=== PATIENT | female | born 2000 | race Caucasian/White ===

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

== ENCOUNTER 2021-02-22 21:11 | Emergency (ER) | payer OTHER ==
[~2021-02-22] VITALS: Ht 167.7 cm; Wt 59.1 kg
[2021-02-22] MEDS ORDERED: ONDANSETRON 4 MG (ZOFRAN) ORAL DISSOLVE TAB SL STA (21:49)
--- NOTE | 2021-02-22 21:59 | ED GI ---
General Stated Complaint: HEADACH, NAUSEA, VOMITING, MUSCLE ACHE Source of Information: Patient Exam Limitations: No Limitations History of Present Illness Date Seen by Provider: Feb 22, 2021 Time Seen by Provider: 21:40 Initial Comments 20-year-old female with no significant past medical history coming in due to 1 day of nonbloody and nonbilious vomiting. Started this morning upon waking up. Every time she vomits she feels better for a little bit of time and then it comes back. She had minimal to eat today but has had some fluids. Has not had any fever, cough, shortness of breath, abdominal pain, dysuria, diarrhea, rash, or any other concerns. He does live with a couple different people but nobody else has been sick. She does not believe she is eating anything unusual or raw. She is otherwise denying any other acute complaints. She did have Covid back in November, but is not vaccinated. She is on the control pill, and her LMP was 2 days ago. Allergies and Home Medications Allergies Coded Allergies: Penicillins (Verified Allergy, Unknown, 10/09/10) RASH ibuprofen (Verified Allergy, Unknown, 10/09/10) RASH Home Medications Dexamethasone 1 Mg/1 Ml Evonne, 6 MG PO ONCE Prescribed by: ELIGIO JONES on 12/31/131854 Hydrocodone Bit/Acetaminophen 1 Tab Tab, 1 TAB PO Q4H PRN for pain Prescribed by: ELIGIO JONES on 11/16/172015 Methylprednisolone 4 Mg Tab.ds.pk, 4 MG PO UD PER DOSE PACK INSTRUCTIONS Prescribed by: GUS VELEZ on 03/07/19 0021 Patient Home Medication List Home Medication List Reviewed: Yes Review of Systems Review of Systems Constitutional: No fever EENTM: No Blurred Vision Respiratory: Denies Cough, Denies Shortness of Air Cardiovascular: Denies Chest Pain Gastrointestinal: Denies Abdominal Pain, Denies Diarrhea; Nausea, Vomiting Genitourinary: Denies Burning, Denies Frequency Musculoskeletal: No back pain Skin: No rash Psychiatric/Neurological: Denies Anxiety, Denies Depressed Endocrine: No Symptoms Reported Hematologic/Lymphatic: No Symptoms Reported All Other Systems Reviewed Negative Unless Noted: Yes Past Ozbdpga-Wnvznz-Wveqka Hx Patient Social History Tobacco Use?: No Substance use?: No Alcohol Use?: No Immunizations Up To Date Tetanus Booster (TDap): Less than 5yrs PED Vaccines UTD: Yes Seasonal Allergies Seasonal Allergies: No Past Medical History Surgeries: Yes (teeth) Respiratory: No Cardiac: No Neurological: No Genitourinary: No Gastrointestinal: No Musculoskeletal: Yes Fractures Endocrine: No HEENT: No Cancer: No Psychosocial: No Integumentary: No Blood Disorders: No Family Medical History No Pertinent Family Hx Physical Exam Vital Signs Vital Signs - First Documented 02/22/21 21:40 Temp 37.7 Pulse 109 Resp 16 B/P (MAP) 117/88 (98) Pulse Ox 99 O2 Delivery Room Air Capillary Refill : Height/Weight/BMI Height: 5'6.00" Weight: 130lbs. 0.0oz. 58.615037ul; 21.00 BMI Method:Stated General Appearance: WD/WN, no apparent distress HEENT: PERRL/EOMI, normal ENT inspection, TMs normal, pharynx normal Neck: non-tender, full range of motion, supple, normal inspection Respiratory: chest non-tender, lungs clear, normal breath sounds, no resp iratory distress, no accessory muscle use Cardiovascular: regular rate, rhythm, no edema, no murmur Gastrointestinal: normal bowel sounds, non tender, soft; No distended, No guarding, No rebound Extremities: normal range of motion, non-tender, no calf tenderness Back: normal inspection, no CVA tenderness Neurologic/Psychiatric: no motor/sensory deficits, alert, normal mood/affect Skin: normal color, warm/dry Lymphatic: no adenopathy Progress/Results/Core Measures Results/Orders Lab Results Laboratory Tests Test 02/22/21 21:50 Range/Units SARS-CoV-2 RNA (RT-PCR) Not Detected Not Detecte My Orders Orders - TOBIAS LONG MD Covid 19 Inhouse Test (02/22/21 21:49) Ondansetron Oral Dissolve Tab (Zofran (02/22/21 21:49) Urine Bedside (02/22/21 21:49) Vital Signs/I&O 02/22/21 21:40 Temp 37.7 Pulse 109 Resp 16 B/P (MAP) 117/88 (98) Pulse Ox 99 O2 Delivery Room Air Progress Progress Note : Progress Note 20-year-old female with above history coming in due to nausea and vomiting. ABCs were intact and vitals were stable on presentation although her heart rate is around 100. In the setting of frequent vomiting all day this makes sense. I offered IV fluids, but she is terrified of needles. Was given an ODT Zofran instead and she will trial oral fluids for now. test as well as Covid test sent. Abdominal exam reassuring with no tenderness. testing Covid test negative. She was able to tolerate p.o. fluids. Heart rate came down to the 80s appropriately. I believe she is stable for discharge. She was sent home with strict return precautions. Departure Impression Primary Impression: Nausea and vomiting Qualified Codes: R11.2 - Nausea with vomiting, unspecified Disposition: HOME, SELF-CARE Condition: Stable Departure-Patient Inst. Decision time for Depature: 22:53 Referrals: EMPERATRIZ RODRIGUEZ MD (PCP/Family) Primary Care Physician Patient Instructions: Nausea and Vomiting, Adult Add. Discharge Instructions: You were seen in the emergency department for nausea and vomiting. We gave you Zofran to help with the nausea and you tolerated fluids afterwards. Your Covid test and test were negative. Continue to try fluids for the next couple days with Zofran which helps with nausea. Do not try to eat anything too heavy as this might make it worse. If you have any concerns then please come back to the emergency department or schedule an appointment with your primary care provider. Scripts Ondansetron (Ondansetron Odt) 4 Mg Tab.rapdis 4 MG PO Q6H PRN for NAUSEA/VOMITING for 4 Days, #24 TAB 0 Refills Prov: TOBIAS LONG MD 02/22/21 Work/School Note: Work Release Form Date Seen in the Emergency Department: Feb 22, 2021 Return to Work: Feb 24, 2021 Restrictions: No Restrictions TOBIAS LONG MD Feb 22, 2021 21:59
[2021-02-22] MEDS ORDERED: ONDA4TAB11 PO (22:54)
[2021-02-22] MEDS ORDERED: RX-ONDANSETRON 4 MG ODT (ZOFRAN) PPK #4 PO STA (22:55)
[2021-02-22 23:11] VITALS: BP 112/73
== END 2021-02-22 23:11 | disposition home or self-care (01) ==
LOC: EDUNIT# 21:11 → ER 21:15
DX: R11.2 Nausea with vomiting, unspecified (principal); Z20.822 Contact with and (suspected) exposure to COVID-19; Z86.16 Personal history of COVID-19; Z79.52 Long term (current) use of systemic steroids
CPT/HCPCS: 84703; 87636; 99283

== ENCOUNTER → 2023-06-18 | Outpatient (CLI) | payer BC ==
[~2023-06-18] MED LIST changes: +ONDA4TAB11 PO
--- NOTE | 2023-06-18 16:55 | Diagnostic Imaging Report ---
PROCEDURE: US OB SINGLE FETUS <14 WKS. TECHNIQUE: Multiple real-time grayscale images were obtained over the gravid uterus in various projections. INDICATION: Positive test. Size and dates COMPARISON: None. FINDINGS: There is a single, live intrauterine with a crown-rump length measuring 2 cm, which is consistent with a 8 week and 5 day-old fetus. heart rate was documented at 174 beats per minute. anatomy is not well seen at this early state of gestation. Gestational sac shape is appropriate. No adnexal masses are identified. Ovaries are not well visualized due to position There is no free fluid in the cul-de-sac. CLINICAL DATES: Gestational age 9 weeks and 0 days JOHN is 01/21/2024 IMPRESSION: Single, live intrauterine at 9 weeks and 2 days. Estimated due date is 01/19/2024. These are consistent with the clinical dates. No abnormality is seen at this time. Dictated by: Dictated on workstation # [id number]
== END ==
LOC: RAD 15:17
PROVIDERS: ATTEND Family Medicine
DX: Z36.87 Encounter for antenatal screening for uncertain dates (principal); Z3A.09 9 weeks gestation of pregnancy
CPT/HCPCS: 76801